=== PATIENT | male | born 1950 | race Caucasian/White ===

== ENCOUNTER 2023-03-29 06:49 | Day surgery (SDC) | payer OTHER ==
[~2023-03-29] VITALS: Ht 175.3 cm; Wt 52.6 kg
[2023-03-29] MEDS ORDERED: SIMETHICONE 40 MG/0.6 ML ML ONE (07:07)
[2023-03-29] MEDS ORDERED: MIDAZOLAM HCL 5 MG/5 ML VIAL ONE (07:07)
[2023-03-29] MEDS ORDERED: fentaNYL CITRATE/PF 100 MCG/2 ML AMP ONE (07:07)
[2023-03-29 16:03] VITALS: BP_SYST 136
== END 2023-03-29 10:06 | disposition home or self-care (01) ==
LOC: SDS 06:49 → SMU 07:00 → SDS 10:06
PROVIDERS: ATTEND Internal Medicine
DX: Z12.11 Encounter for screening for malignant neoplasm of colon (principal); D12.2 Benign neoplasm of ascending colon; K57.30 Diverticulosis of large intestine without perforation or abscess without bleeding; K64.8 Other hemorrhoids; Z86.010 Personal history of colon polyps; E78.5 Hyperlipidemia, unspecified; Z79.899 Other long term (current) drug therapy
CPT/HCPCS: 45380; 88305; 99152; G0378; J2250; J3010